=== PATIENT | female | born 1990 | race Two or more races ===

== ENCOUNTER 2024-10-21 05:20 | Day surgery (SDC) | payer OTHER ==
[2024-10-15 09:49] LABS: PH,URINE 5.5 (5.0-8.0); URINE APPEARANCE Clear; URINE BILIRRUBIN Negative (NEGATIVE); URINE BLOOD Negative; URINE COLOR Yellow; URINE GLUCOSE Negative (NEGATIVE); URINE KETONE Negative (NEGATIVE); URINE LEUKOCYTE Negative; URINE NITRATE Negative; URINE PROTEIN Negative (NEGATIVE); URINE UROBILINOGEN 0.2 E.U./dl
[2024-10-15 09:53] LABS: URINE BACTERIA 660.9 uL (0.0-1933); URINE EPITHELIAL CELLS 11.5 uL (0.0-38.8); URINE RBC 22.2 uL (0.0-20.8)
[2024-10-15 10:03] LABS: HEMATOCRIT 38.7 % (36.0-45.00); HEMOGLOBIN 12.7 g/dL (12.0-15.00); MEAN CELL VOLUME 79.7 fL (80.00-100.00); MEAN CORPUSCULAR HEMOGLOBIN 26.2 pg (27.00-32.0); MEAN CORPUSCULAR HGB CONC 32.9 g/dl (32.0-36.0); PLATELET COUNT 325 K/uL (150-450); RED BLOOD COUNT 4.85 M/uL (4.00-6.00); RED CELL DISTRIBUTION WIDTH 14.8 % (11.5-14.5)
[2024-10-15 10:36] LABS: INR 1.01; PARTIAL THROMBOPLASTIN TIME 30.2 SECONDS (22.0-34.0)
[2024-10-15 10:51] LABS: ALBUMIN 3.9 gm/dL (3.4-5.0); BILIRUBIN TOTAL 0.64 mg/dL (0.3-1.2); CALCIUM 9.3 mg/dL (8.5-10.1); CREATININE SERUM 0.74 mg/dL (0.55-1.02); GFR 90.38; POTASSIUM 4.62 mEq/L (3.5-5.1); TOTAL PROTEIN 7.9 gm/dL (6.4-8.2); TSH 2.35 uIU/mL (0.358-3.74)
[~2024-10-21 05:20] MED LIST: MOUNJARO2.5 MG/0.5
[2024-10-21] MEDS ORDERED: PROMETHAZINE HCL 50 MG/ML AMPUL IM ONE (08:15)
[2024-10-21] MEDS ORDERED: MORPHINE SULFATE 4 MG/ML VIAL IV PRN (08:15)
[2024-10-21] MEDS ORDERED: MONODOX100 MG PO (08:17)
[2024-10-21] MEDS ORDERED: NAPR500T14 PO (08:17)
[2024-10-21] MEDS ORDERED: POVIDONE-IODINE 118 ML BOTT TOP ONE (09:30)
[2024-10-21] MEDS ORDERED: CEFOXITIN SODIUM 2,000 MG VIAL IV ONE (09:30)
== END 2024-10-21 13:05 | disposition home or self-care (01) ==
LOC: CIR.AMB 05:20
PROVIDERS: ATTEND Obstetrics & Gynecology
DX: D25.0 Submucous leiomyoma of uterus (principal); N84.0 Polyp of corpus uteri; N92.0 Excessive and frequent menstruation with regular cycle; E11.9 Type 2 diabetes mellitus without complications

== ENCOUNTER 2025-02-23 05:18 | Day surgery (SDC) | payer OTHER ==
[2025-02-15 10:11] VITALS: BP 100/60
[2025-02-15 10:18] LABS: BASO % 0.3 % (0.1-1.2); EOS # 0.10 (0.04-0.54); EOS % 1.7 % (0.7-7.0); LYMPH # 2.60 (1.18-3.74); LYMPH % 45.1 % (19.3-53.1); MEAN PLATELET VOLUME 9.40 fl (9.4-12.4); MONO # 0.24 (0.24-0.82); MONO % 4.2 % (4.7-12.5); NEUT # 2.80 (1.56-6.13); NEUT % 48.5 % (34.0-71.1); RED CELL DISTRIBUTION WIDTH 12.9 % (11.6-14.4)
[2025-02-15 10:57] LABS: INR 0.95
[2025-02-15 11:06] LABS: ALT/SGPT 21.0 U/L (12-78); AST/SGOT 14.0 U/L (15-37); BILIRUBIN TOTAL 0.46 mg/dL (0.3-1.2); BUN CREA RATIO 12.0 (7.0-25.0); CREATININE SERUM 0.84 mg/dL (0.55-1.02); GFR 78.08; GLOBULINA 4.2 G/DL (2.4-3.5); GLUCOSE FASTING 81.0 mg/dL (65-100); OSMOLALITY SERUM 279.0 MOSM/KG (275-295)
[~2025-02-23] VITALS: Ht 170.2 cm; Wt 73.5 kg
[~2025-02-23 05:18] MED LIST changes: +MONODOX100 MG PO; +NAPR500T14 PO; +SYEDA 28 TABLE1 EACH PO
[2025-02-23] MEDS ORDERED: HYDROGEN PEROXIDE 118 ML SOLUTION TOP ONE (07:45)
[2025-02-23] MEDS ORDERED: METRONIDAZOLE/SODIUM CHLORIDE 500 MG/100 ML PIGGYBACK IV ONE (07:45)
[2025-02-23] MEDS ORDERED: LIDOCAINE HCL 1%/EPINEPHRINE 20ML VIAL IJ ONE (07:45)
[2025-02-23] MEDS ORDERED: HEMOSTATIC MATRIX 1 KIT KIT TOP ONE (07:45)
[2025-02-23] MEDS ORDERED: DIBUCAINE 30 GM TUBE RECTAL ONE (07:45)
[2025-02-23] MEDS ORDERED: CEFTRIAXONE SODIUM 2,000 MG VIAL IV ONE (07:45)
[2025-02-23] MEDS ORDERED: BUPIVACAINE HCL 30 ML VIAL IJ ONE (07:45)
[2025-02-23] MEDS ORDERED: POVIDONE-IODINE 118 ML BOTT TOP ONE (07:45)
[2025-02-23] MEDS ORDERED: NEURONTIN300 MG PO (11:24)
[2025-02-23] MEDS ORDERED: CELECOXIB200 MG PO (11:24)
[2025-02-23] MEDS ORDERED: INTESTINEX680 M1 PO (11:25)
[2025-02-23] MEDS ORDERED: PERCOCET 5-3251 EACH PO (11:25)
== END 2025-02-23 12:50 | disposition home or self-care (01) ==
LOC: CIR.AMB 05:18
PROVIDERS: ATTEND Surgery
DX: K60.1 Chronic anal fissure (principal); K62.5 Hemorrhage of anus and rectum; K62.89 Other specified diseases of anus and rectum; K60.0 Acute anal fissure